=== PATIENT | female | born 1975 ===

== ENCOUNTER 2025-02-24 13:18 | Emergency (ER) | payer OTHER, SELFPAY ==
[2025-02-24 13:26] VITALS: BP 118/80; PULSE 82; RESP 18; TEMP 36.7; O2SAT 99
--- NOTE | 2025-02-24 14:42 | ED_ITS ---
HPI - Extremity Problem General Chief complaint: Extremity Injury, Upper Stated complaint: Left Shoulder Time Seen by Provider: 02/24/25 13:35 Source: patient, RN notes reviewed and old records reviewed Mode of arrival: ambulatory Limitations: no limitations History of Present Illness HPI Narrative: 49-year-old female presents to the [facility] with complaints of decreased range of motion and shoulder discomfort that is worse with movements for at least 4 weeks. Has not seen primary. No known injury. No bruising or swelling. Able to raise 90?. Tenderness along the posterior shoulder. Full range of motion of the elbow and wrist. Positive radial pulse. Sensation intact. No numbness or tingling. No midline tenderness of the cervical spine Onset (ago): month(s) ( 1+) Related Data Home Medications ?Medication ?Instructions ?Recorded ?Confirmed ?Last Taken ?Type albuterol sulfate 90 mcg/actuation inhalation 02/24/25 Unknown History aerosol inhaler buspirone 15 mg tablet mg 02/24/25 Unknown History liraglutide 0.6 mg/0.1 mL (18 mg/3 mg subcut 02/24/25 Unknown History mL) subcutaneous pen injector lisinopril 2.5 mg tablet mg 02/24/25 Unknown History pravastatin 40 mg tablet mg 02/24/25 Unknown History spironolactone 25 mg tablet mg 02/24/25 Unknown Histo ry topiramate 50 mg tablet mg 02/24/25 Unknown History Allergies Allergy/AdvReac Type Severity Reaction Status Date / Time No Known Allergies Allergy Verified 02/24/25 13:22 Review of Systems Review of Systems: All systems reviewed & are unremarkable except as noted in HPI and below Constitutional: Constitutional: Reports no additional constitutional complaints ENT: Reports system reviewed and no additional complaints, except as documented Cardiovascular: Cardiovascular: Reports no additional cardiovascular complaints, Denies chest pain and Denies dyspnea Respiratory: Respiratory: Reports no additional respiratory complaints, Denies chest congestion, Denies cough and Denies dyspnea Musculoskeletal: Musculoskeletal: Reports as per HPI, Reports arthralgias, Denies joint swelling and Reports limited range of motion Integumentary/Breasts: Skin/Breast: Reports system reviewed and no additional complaints, except as docu PMFSH Comments At the time of my signature, I reviewed and agree with the nursing past medical, surgical, social, and family history. There is no relevant family history pertinent to the patient complaint. Exam Const: General: cooperative, healthy appearing, comfortable, no acute distress, well developed, alert and well nourished Nutritional Appearance: well nourished Orientation/consciousness: patient oriented x3 Limitations: no limitations HENMT: Head: normal to inspection Ears: hearing grossly normal bilaterally, external ears normal, TM's normal bilaterally, EAC's normal, mastoids normal and no periauricular adenopathy Mouth: Yes Normal oral and palatal mucosa present, Yes lip normal, Yes tongue normal and Yes moist mucous membranes Throat: posterior oropharynx normal, uvula midline and no uvular edema Eyes: General: appearance normal, both eyes and all related structures Alignment and Position: alignment normal Neck: Neck: normal visual inspection, full ROM, no lymphadenopathy and no meningeal signs Chest: Chest palpation & inspection: normal inspection of the chest Resp: Effort & Inspection: normal respiratory effort and able to speak in complete sentences Auscultation: clear to auscultation bilaterally, no crackles, no rales, no rhonchi and no wheezes Cardio: Rate: regular rate Back/Spine/Pelvis: Back: No ecchymosis and No back tenderness Skin: General skin exam: normal color and no rashes or lesions noted Neuro: General: patient oriented x3, gait normal, moves all extremities and no meningeal signs Cognition (Neuro): normal cognition Speech: normal speech Gait exam (Neuro): Normal gait present Extrem: General: normal to inspection, full ROM, capillary refill normal and normal gait Left upper extremity: normal capillary refill, shoulder/upper arm tenderness and abnormal ROM pain with active ROM and pain with passive ROM; no swelling, no abrasions, no ecchymosis, no foreign bodies, no penetrating wound, no deformity and no unsual warmth, elbow/forearm normal to inspection and normal ROM and wrist normal to inspection and normal ROM Psych: Appearance: grossly normal and well kempt Mental Status: mental st atus grossly normal Speech and movement: Normal speech and movement present and Clear speech present Affect: normal affect Attitude: cooperative Course Course Level of Care: Express Care Visit Vital Signs Vital signs: Vital Signs Temperature 98.1 F 02/24/25 13:26 Pulse Rate 82 02/24/25 13:26 Respiratory Rate 18 02/24/25 13:26 Blood Pressure 118/80 02/24/25 13:26 Pulse Oximetry 99 02/24/25 13:26 Oxygen Delivery Room Air 02/24/25 13:26 Temperature 98.1 F 02/24/25 13:26 Pulse Rate 82 02/24/25 13:26 Respiratory Rate 18 02/24/25 13:26 Blood Pressure 118/80 02/24/25 13:26 Pulse Oximetry 99 02/24/25 13:26 Oxygen Delivery Room Air 02/24/25 13:26 Reviewed MDM - Extremity (Nontraumatic) MDM Narrative Medical decision making narrative: patient sitting in exam room. Patient is nontoxic, vitals stable. Patient presents with at least 4 weeks of increasing discomfort and limited range of motion of the left shoulder. No injury. No bruising or swelling noted. Patient with a history of fibromyalgia. Discussed an x-ray, x-rays would not show a rotator issue or ligament issue. Patient after education on x-rays declined x-ray. List of providers given prescribed a muscle relaxer and anti-inflammatory patient appropriate for outpatient treatment with close follow-up Discharge instructions reviewed with patient, as well as provided in writing per nursing staff. The instructions also include specific and strict return/GO TO THE ER as well as f/u information. All questions have been answered, and the patient deny any further questions with discharge and discharge plan. Some parts of this dictation were generated by voice recognition software and may contain typographical and/or grammatical inaccuracies. Differential Diagnosis Differential diagnosis: Likely other (Shoulder sprain, strain, osteoarthritis, rotator cuff tendinitis, rotator cuff tear) Critical Care Time Critical Care Time Critical Care Time: No Discharge Plan Discharge Clinical Impression: Left shoulder strain Qualifiers: Encounter type: initial encounter Qualified Code(s): S46.912A - Strain of unspecified muscle, fascia and tendon at shoulder and upper arm level, left arm, initial encounter Patient Disposition: Home Condition: Stable Instructions: Antibiotic Form, Rotator Cuff Tendinitis (ED), Rotator Cuff Injury Exercises (DC) Additional Instructions: Take ibuprofen as directed to decrease inflammation and to help pain. Take Baclofen (muscle relaxer) as directed. Do not drink, drive, operate machinery, or do anything dangerous while taking this medication Take steroids to reduce inflammation Exercise:Combine aerobic exercise, like walking or swimming, with specific exercises to keep the muscles in your back and abdomen strong and flexible. Proper Lifting:Be sure to lift heavy items with your legs, not your back. Do not bend over to pick something up. Keep your back straight and bend at your knees. Weight:Maintain a healthy weight. Being overweight puts added stress on your lower back. Avoid Smoking:Both the smoke and the nicotine cause your spine to age faster than normal. Proper Posture:Good posture is important for avoiding future problems. A therapist can teach you how to safely stand, sit, and lift. Use warm moist heat to help with pain. Using topical such as Biofreeze, Les-Adan or Aspercreme can also help Follow up with Primary provider in 2-3 days, This may become a chronic condition and they will be the one to help manage your pain and order additional testing. Go to the nearest ER if you develop problems with bladder/bowel function, weakness or loss of feeling in one or both of your legs. Patient Language: Vietnamese Prescriptions: New baclofen 10 mg tablet 10 mg PO TID PRN (Reason: muscle pain) Qty: 10 0RF prednisone 20 mg tablet 40 mg PO DAILY 5 Days Qty: 10 0RF No Action pravastatin 40 mg tablet spironolactone 25 mg tablet albuterol sulfate 90 mcg/actuation HFA aerosol inhaler INHALATION lisinopril 2.5 mg tablet buspirone 15 mg tablet topiramate 50 mg tablet liraglutide 0.6 mg/0.1 mL (18 mg/3 mL) pen injector SUBCUT Follow-up/Referrals: PHYSICIAN NOT ON STAFF,NONSTAFF [Primary Care Provider] Time of Disposition: 13:39
== END 2025-02-24 13:45 | disposition home or self-care (01) ==
PROVIDERS: Emergency Provider Nurse Practitioner
DX: S46.912A Strain of unspecified muscle, fascia and tendon at shoulder and upper arm level, left arm, initial encounter (principal); X58.XXXA Exposure to other specified factors, initial encounter; I50.9 Heart failure, unspecified; Z95.0 Presence of cardiac pacemaker; M79.7 Fibromyalgia
CPT/HCPCS: 99203; G0463